=== PATIENT | male | born 1990 | race Caucasian/White ===

== ENCOUNTER 2022-04-21 18:58 | Emergency (ER) | payer OTHER, MEDICAID, SELFPAY ==
[2022-04-21 19:10] VITALS: BP 155/96; PULSE 145; RESP 22; TEMP 39.1; O2SAT 97; BMI 41.8
--- NOTE | 2022-04-21 19:36 | ED.FEVER ---
HPI - Fever General Chief Complaint: Fever Stated Complaint: Fever 101F, sore, aches, tired, weak Time Seen by Provider: 04/21/22 19:23 Source: patient Mode of arrival: Ambulatory History of Present Illness HPI Narrative: Patient here for fever body aches and chills. No coughing vomiting or diarrhea. Started at noon time today about 7 hours ago. Is not COVID vaccinated. Unknown sick contacts. Heart rate noted however he took 5 pills tonight of 250 mg of Excedrin which has aspirin Tylenol as well as caffeine in it. He does not take this very often. Denies any chest pain. Denies any trouble breathing. Related Data Home Medications Medication Instructions Recorded Confirmed No Known Home Medications 04/16/22 04/16/22 Allergies Allergy/AdvReac Type Severity Reaction Status Date / Time morphine Allergy Severe Anaphylaxis Verified 04/16/22 12:15 hydromorphine Allergy Severe Anaphylaxis Uncoded 04/16/22 12:15 Review of Systems Review of Systems Narrative: GENERAL: Positive for chills, fatigue, malaise, fever, sweats. HEENT: Denies sinus pain, ear pain, sore throat RESPIRATORY: Denies dyspnea, cough CARDIOVASCULAR: Denies chest pain, palpitations GASTROINTESTINAL: Denies nausea, vomiting, abdominal pain : Denies dysuria, frequency, hematuria MUSCULOSKELETAL: denies muscle or bony pain SKIN: Denies rash, skin lesions NEUROLOGIC: Denies weakness, numbness ROS Unobtainable: All systems reviewed & are unremarkable except as noted in HPI and below Patient History Social History Smoking Status: Former smoker Smoking Status: Former smoker alcohol intake frequency: 0-2 drinks per day Substance Use Type: does not use Exam Narrative Exam Narrative: GENERAL: in no distress, not toxic not dyspneic HEAD: Normocephalic. EYES: Pupils equal round No scleral icterus. ENT: Mucous membranes moist. NECK: Trachea midline. No meningeal signs. CARDIOVASCULAR: Regular rate and rhythm without murmurs, tachycardic RESPIRATORY: Clear to auscultation. Breath sounds equal bilaterally. No wheezes, rales, or rhonchi. Speaking full sentences GASTROINTESTINAL: Abdomen soft, non-tender EXTREMITIES: No gross deformities. BACK: No flank tenderness. NEURO: AOx4. SKIN: Warm and pink, is moist. PSYCH: Not anxious, is cooperative Initial Vital Signs Initial Vital Signs: Vital Signs Temperature 102.3 F H 04/21/22 19:10 Pulse Rate 145 H 04/21/22 19:10 Respiratory Rate 22 04/21/22 19:10 Blood Pressure 155/96 H 04/21/22 19:10 Pulse Oximetry 97 04/21/22 19:10 Oxygen Delivery Method 04/21/22 19:10 Course Course Course Narrative: No new issues during course of stay. Orders Ordered: ED Orders 04/21/22 19:37 Respiratory Panel (Film Array) Stat 04/21/22 19:56 EKG-12 Lead Stat Discontinued Medications Sodium Chloride (Normal Saline 0.9%) 1,000 mls @ 1,000 mls/hr IV BOLUS ONE Stop: 04/21/22 20:33 Last Infusion: 04/21/22 21:26 Dose: 0 mls/hr Documented By: Admin: 04/21/22 20:02 Dose: 1,000 mls/hr Documented By: SHAYY Ibuprofen (Ibuprofen 400 Mg Tablet) 800 mg PO NOW ONE Stop: 04/21/22 19:35 Last Admin: 04/21/22 20:02 Dose: 800 mg Documented By: SHAYY Reevaluation(s) Reevaluation #1: Temperature 99.7? however heart rate still 130. Normotensive. Patient states feels much better now he states his heart rate is to because he is very anxious and is under lot of stress. Also he says he took a lot a caffeine in the Excedrin. He does not want any further workup. He desires to go home. He feels much much better. He is not toxic appearing Time: 21:13 Vital Signs Vital signs: Vital Signs - 8 hr 04/21/22 19:10 04/21/22 20:02 04/21/22 21:11 Temperature 102.3 F H 102 F H 99.7 F H Pulse Rate 145 H 129 H Respiratory Rate 22 20 Blood Pressure 155/96 H 143/94 H Pulse Oximetry 97 98 Oxygen Delivery Method Room Air Room Air MDM - Fever Differential Diagnosis Differential diagnosis: Likely fever of unknown origin, community acquired pneumonia, viral infection, sepsis and influenza Lab Data Labs: Lab Results 04/21/22 Range/Units 19:37 Chlamy pneumoniae PCR Not detected (Not Detect) Adenovirus (PCR) Not detected (Not Detect) B. pertussis DNA (PCR) Not detected (Not Detecte) B.parapertussis DNA PCR Not detected (Not Detecte) Coronavirus OC43 (PCR) Not detected (Not Detect) Coronavirus HKU1 (PCR) Not detected (Not Detect) Coronavirus 229E (PCR) Not detected (Not Detect) SARS-CoV-2 (PCR) Detected H (Not Detecte) Coronavirus NL63 (PCR) Not detected (Not Detect) Human Metapneumovir PCR Not detected (Not Detect) Influenza Type A (PCR) Not detected (Not Detect) Influenza Type B (PCR) Not detected (Not Detect) M. pneumoniae (PCR) Not detected (Not Detect) Parainfluenza 1 (PCR) Not detected (Not Detect) Parainfluenza 2 (PCR) Not detected (Not Detect) Parainfluenza 3 (PCR) Not detected (Not Detect) Parainfluenza 4 (PCR) Not detected (Not Detect) RSV (PCR) Not detected (Not Detect) Entero/Rhino (PCR) Not detected (Not Detect) ECG Data Interpretation: Sinus tachycardia rate 142. No ST elevation MDM Narrative Medical decision making narrative: Appropriate discharge. Patient not toxic, again not toxic. In no distress. Heart rate related to a lot of caffeine he took he states. Denies any drug use. No blood work indicated this time. Fever control at time of discharge. Feeling much better. Return precautions reviewed with him. Discharge Plan Departure Patient Disposition: Home Clinical Impression: COVID-19 Instructions: DI for Fever (Symptom) -- Adult, DI for COVID-19 (Suspected or Confirmed ) Activity Restrictions/Additional Instructions: Please continue quarantine 10 days from the 1st day of your symptoms which is today. Keep well hydrated. May continue [id number] Tylenol or ibuprofen for pain fever and aches. See family doctor in a week for re-evaluation. Call provided primary care referral phone number to establish family doctor. Call [phone]. Keep well hydrated. Return if worse if any questions or concerns Prescriptions: No Action No Known Home Medications Referrals: Miscellaneous,Doctor, [Primary Care Provider] - Stand Alone Forms: Work Release Note Visit Report Forms: Patient Portal/API
[2022-04-21 20:02] VITALS: TEMP 38.8
[2022-04-21] MEDS: SODIUM CHLORIDE 0.9% 1,000 ML 1000 ML IV (20:02)
[2022-04-21] MEDS: IBUPROFEN 400 MG TABLET 800 MG PO (20:02)
[2022-04-21 20:34] LABS: Adenovirus Not Detected (Not Detect); B. parapertussis Not Detected (Not Detecte); Bordetella pertussis Not Detected (Not Detecte); Chlamydophila pneumoniae Not Detected (Not Detect); Coronavirus 229E Not Detected (Not Detect); Coronavirus HKU1 Not Detected (Not Detect); Coronavirus NL 63 Not Detected (Not Detect); Coronavirus OC43 Not Detected (Not Detect); Human Metapneumovirus Not Detected (Not Detect); Human Rhinovirus/Enterovirus Not Detected (Not Detect); Influenza A Not Detected (Not Detect); Influenza B Not Detected (Not Detect); Mycoplasma pneumoniae Not Detected (Not Detect); Parainfluenza Virus 1 Not Detected (Not Detect); Parainfluenza Virus 2 Not Detected (Not Detect); Parainfluenza Virus 3 Not Detected (Not Detect); Parainfluenza Virus 4 Not Detected (Not Detect); Respiratory Syncytial Virus Not Detected (Not Detect)
[2022-04-21 20:35] LABS: SARS- CoV-2 Detected (Not Detecte)
[2022-04-21 21:11] VITALS: BP 143/94; PULSE 129; RESP 20; TEMP 37.6; O2SAT 98
== END 2022-04-21 21:30 | disposition home or self-care (01) ==
PROVIDERS: Emergency Provider Emergency Medicine
DX: U07.1 COVID-19 (principal)
CPT/HCPCS: 87633; 93005; 96360; 99284